=== PATIENT | male | born 1955 | race African-American/Black ===

== ENCOUNTER 2017-03-20 15:52 | Emergency (ER) | payer SELFPAY ==
[~2017-03-20] VITALS: Ht 185.4 cm; Wt 81.6 kg
[2017-03-20] MEDS ORDERED: Metoclopramide 10mg/2ml Inj IM SCH (16:00)
--- NOTE | 2017-03-20 17:09 | Emergency Room Report ---
History of Present Illness General Chief Complaint: Vomiting Source: Patient Present Illness HPI 61YOM walk-in with nausea/vomiting x2 after eating "[employer]" earlier. Deneis abd pain. Feels better after vomiting. Denies chest pain, SOB, urinary complaints, fever/chills Denies previous abd/pelvic surgery Denies medical problems At [facility] currently for right foot care Allergies: Coded Allergies: No Known Allergies (Unverified , 03/20/17) Patient History Past Medical History: see triage record, old chart reviewed Past Surgical History: none Pertinent Family History: none Social History: Denies: alcohol use, drug use, smoking Immunizations: UTD Reviewed Nursing Documentation: PMH: Agreed, PSxH: Agreed Nursing Documentation-PMH Hx Hypertension: Yes Hx Diabetes: Yes Review of Systems All Other Systems: negative except mentioned in HPI Physical Exam Vital Signs Date Time Temp Pulse Resp B/P Pulse Ox O2 Delivery O2 Flow Rate FiO2 03/20/17 15:47 98.8 109 16 117/67 98 Room Air Sp02 EP Interpretation: reviewed, normal General Appearance: normal inspection, well appearing, no apparent distress, alert, GCS 15, non-toxic Head: normocephalic, atraumatic Eyes: bilateral eye EOMI, bilateral eye PERRL ENT: normal ENT inspection, hearing grossly normal, normal voice Neck: normal inspection, full range of motion, supple, no bony tend Respiratory: normal inspection, lungs clear, normal breath sounds, no respiratory distress, no retraction, no wheezing Cardiovascular #1: regular rate, rhythm, no edema Gastrointestinal: normal inspection, normal bowel sounds, non tender, soft, no guarding, no hernia Genitourinary: no CVA tenderness Musculoskeletal: normal inspection, back normal, normal range of motion, Sofía' s Sign negative Neurologic: normal inspection, alert, oriented x3, responsive, 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 Afebrile No abd pain Non focal abd on serial exam No additional; vomiting in ED after anti-emetic Feels better, asking for food Low suspicion for acute bacterial/surgical process Last Vital Signs Date Time Temp Pulse Resp B/P Pulse Ox O2 Delivery O2 Flow Rate FiO2 03/20/17 15:47 98.8 109 16 117/67 98 Room Air Status: improved Disposition: HOME, SELF-CARE Condition: Improved Patient Instructions: Nausea and Vomiting, Adult ROCAEL CHAVEZ M.D. Mar 20, 2017 17:09
[2017-03-20 17:24] VITALS: BP 141/78
== END 2017-03-20 17:59 | disposition home or self-care (01) ==
LOC: EDBD 15:52 → EMR 16:05
DX: R11.2 Nausea with vomiting, unspecified (principal); I10 Essential (primary) hypertension; E11.9 Type 2 diabetes mellitus without complications
CPT/HCPCS: 96372; 99283; J2765

== ENCOUNTER 2018-08-05 10:17 | Emergency (ER) | payer SELFPAY ==
[~2018-08-05] VITALS: Ht 185.4 cm; Wt 68.0 kg
[2018-08-05 10:20] VITALS: BP 149/91
[2018-08-05] MEDS ORDERED: NKM (10:28)
[2018-08-05] MEDS ORDERED: Cyclobenzaprine 10mg Tab ORAL ONE (10:30)
[2018-08-05] MEDS ORDERED: Ketorolac 30mg Inj IM ONE (10:30)
[2018-08-05 11:39] VITALS: BP 123/89
--- NOTE | 2018-08-05 12:19 | Diagnostic Imaging Report ---
Indication: Hip pain Technique: continuous helical imaging in the transaxial plane was performed from the iliac crests to the pubic symphysis with attention to the left hip. Coronal 2-D reformatted images were also generated. Study obtained in a Siem[employer] Sensation [address] total DLP: 311.85 mGycm CTD/vol: 10.1 mGy Comparison: None Findings: There is no evidence of an acute fracture or significant malalignment identified on this examination with particular attention to the left hip. Moderate aortoiliac aspirations are present. There is a left iliac artery stent noted. The study was done without contrast material so the status of the stent and the vessels not known. Impression: No acute fracture identified. No acute injury identified. Atherosclerotic disease. Left iliac artery stent. The CT scanner at [facility] is accredited by the [employer] and the scans are performed using dose optimization techniques as appropriate to a performed exam including Automatic Exposure control.
--- NOTE | 2018-08-05 12:34 | Emergency Room Report ---
History of Present Illness General Chief Complaint: Multiple Trauma/Fall Source: Patient, EMS Present Illness HPI Patient is a 63-year-old male who reports he is in a wheelchair because his knees give out sometimes, and he came in today because he fell out of his wheelchair in his left hip and elbow hurt. Denies head injury, neck pain, bleeding, and now wants a sandwich. Allergies: Coded Allergies: No Known Allergies (Unverified , 03/20/17) Patient History Reviewed Nursing Documentation: PMH: Agreed; PSxH: Agreed Nursing Documentation-PMH Hx Cardiac Problems: Yes Hx Hypertension: Yes Hx Diabetes: Yes Review of Systems All Other Systems: negative except mentioned in HPI Physical Exam Vital Signs Date Time Temp Pulse Resp B/P (MAP) Pulse Ox O2 Delivery O2 Flow Rate FiO2 08/05/18 10:12 97.9 90 18 136/77 98 08/05/18 10:20 Room Air Sp02 EP Interpretation: reviewed, normal General Appearance: no apparent distress, alert, non-toxic Head: normocephalic Eyes: bilateral eye normal inspection, bilateral eye PERRL, bilateral eye EOMI ENT: normal ENT inspection, hearing grossly normal, normal pharynx, no angioedema, normal voice, moist mucus membranes Neck: normal inspection, full range of motion, supple, supple/symm/no masses Respiratory: chest non-tender, lungs clear, normal breath sounds, chest symmetrical, palpation of chest normal Cardiovascular #1: normal peripheral pulses, regular rate, rhythm Cardiovascular #2: 2+ radial (R), 2+ radial (L) Gastrointestinal: normal inspection, non tender, soft, no mass, no guarding, no rebound Rectal: deferred Genitourinary: normal inspection, no CVA tenderness Musculoskeletal: back normal, gait/station normal, normal range of motion, non- tender, no calf tenderness Neurologic: alert, responsive, mill operator III-XII nml as tested, motor strength/tone normal, sensory intact, speech normal Psychiatric: judgement/insight normal, memory normal, mood/affect normal Skin: normal color, no rash, warm/dry, normal turgor Lymphatic: no adenopathy Medical Decision Making Diagnostic Impression: Primary Impression: Fall ER Course xr elbow and ct hip wnl; patietn uses wheelchair, no signs of trauma or ROM limitation on exam, no abrasions or lacs; will dc Other X-Ray Diagnostic Results Other X-Ray Diagnostic Results : X-Ray ordered: L elbow # of Views/Limited Vs Complete: 3 View Indication: Pain EP Interpretation: Yes Interpretation: no dislocation, no soft tissue swelling, no fractures Impression: No acute disease Electronically Signed by: Enio Lugo MD CT/MRI/US Diagnostic Results CT/MRI/US Diagnostic Results : Imaging Test Ordered: L hip ct Impression no acute dz Last Vital Signs Date Time Temp Pulse Resp B/P (MAP) Pulse Ox O2 Delivery O2 Flow Rate FiO2 08/05/18 11:39 97.8 92 16 123/89 100 Room Air Disposition: HOME, SELF-CARE ENIO LUGO M.D Aug 05, 2018 12:34
[2018-08-05 13:36] VITALS: BP 128/76
--- NOTE | 2018-08-05 13:47 | Diagnostic Imaging Report ---
Indication: Pain Findings: 3 views of the left elbow were obtained. No acute fractures, malalignment, erosions or periostitis are identified. Soft tissues are unremarkable. Impression: No acute injury
== END 2018-08-05 13:36 | disposition home or self-care (01) ==
LOC: EDBD 10:17 → EMR 12:33
DX: M25.552 Pain in left hip (principal); M25.522 Pain in left elbow; W05.0XXA Fall from non-moving wheelchair, initial encounter; Y92.9 Unspecified place or not applicable; E11.9 Type 2 diabetes mellitus without complications
CPT/HCPCS: 73080; 73700; 96372; 99284; J1885